=== PATIENT | male | born 1980 | race African-American/Black ===

== ENCOUNTER 2020-08-20 17:12 | Emergency (ER) | payer SELFPAY ==
[~2020-08-20] VITALS: Ht 182.9 cm; Wt 95.3 kg
[2020-08-20] MEDS ORDERED: THIAMINE 100mg/ml INJ (200mg/2ml VIAL) IV ONE (18:15)
[2020-08-20] MEDS ORDERED: SODIUM CHLORIDE 0.9% 1,000 ML IVB ONE (18:15)
[2020-08-20 18:33] LABS: Basophils # (auto) 0 10 ^3/uL (0-0.2); Basophils % (auto) 0.2 % (0.0-2.0); Eosinophils # (auto) 0 10 ^3/uL (0-0.8); Eosinophils % (auto) 0.5 % (0.0-7.0); Hematocrit 47.6 % (41.0-53.0); Hemoglobin 15.9 g/dL (13.5-17.5); Lymphocytes # (auto) 1.6 10 ^3/uL (0.4-5.4); Mean Corpuscular Hemoglobin 31.5 pg (28.0-32.0); Mean Corpuscular Hgb Conc. 33.4 g/dL (32.0-36.0); Mean Corpuscular Volume 94.4 fL (80.0-100.0); Monocytes # (auto) 0.5 10 ^3/uL (0-1.3); Monocytes % (auto) 5.8 % (0.0-12.0); Neutrophils # (auto) 6.2 10 ^3/uL (1.6-8.6); Neutrophils % (auto) 74.5 % (37.0-80.0); Platelet Count (auto) 189 10^3/uL (140-450); Red Blood Cells 5.05 10^6/uL (4.5-5.90); Red Cell Distribution Width 14.6 % (11.8-14.3); White Blood Cell 8.3 10^3/uL (4.4-10.8)
[2020-08-20 18:50] LABS: Albumin 3.9 g/dL (3.4-5.0); Anion Gap 15 (5-15); Blood Urea Nitrogen 10 mg/dL (7-18); Calcium 8.7 mg/dL (8.5-10.1); Carbon Dioxide 20 mmol/L (21-32); Chloride 102 mmol/L (98-107); Glucose 120 mg/dL (74-106); Potassium 3.2 mmol/L (3.5-5.1); Sodium 137 mmol/L (136-145)
[2020-08-20 18:54] LABS: Alanine Aminotransferase 24 U/L (16-61); Alkaline Phosphatase 59 U/L (45-117); Aspartate Aminotransferase 21 U/L (15-37); BUN/Creatinine Ratio 8.1; Bilirubin, Total 0.5 mg/dL (0.2-1.0); GFR African American 85 mL/min; GFR Non-African American 70 mL/min; Total Protein 8.2 g/dL (6.4-8.2)
[2020-08-20 21:39] LABS: Magnesium 2.1 mg/dL (1.6-2.6)
[2020-08-20 22:54] LABS: Urine Bacteria NONE SEEN /hpf (None Seen); Urine Blood Negative /uL (Negative); Urine Specific Gravity 1.006 (1.001-1.035); Urine WBC 2 /hpf (0 - 3)
[2020-08-20 23:11] LABS: Amphetamine Screen, Urine NEGATIVE (NEGATIVE); Barbiturate Scree,Urine NEGATIVE (NEGATIVE); Benzodiazephine Screen, Urine NEGATIVE (NEGATIVE); Cannabinoid Screen, Urine POSITIVE (NEGATIVE); Cocaine Screen, Urine NEGATIVE (NEGATIVE); Opiate Scree,Urine NEGATIVE (NEGATIVE); Phencyclidine Screen, Urine NEGATIVE (NEGATIVE)
[2020-08-21 00:59] VITALS: BP 131/68
== END 2020-08-21 02:27 | disposition home or self-care (01) ==
LOC: ER 17:17
DX: F10.20 Alcohol dependence, uncomplicated (principal); F17.210 Nicotine dependence, cigarettes, uncomplicated; F12.10 Cannabis abuse, uncomplicated; Y90.3 Blood alcohol level of 60-79 mg/100 ml
CPT/HCPCS: 36415; 70450; 71045; 80053; 80307; 80320; 81001; 83735; 84484; 85025; 93005; 96361; 96374; 99285; J3411; J7030

== ENCOUNTER 2022-03-14 08:19 | Emergency (ER) | payer SELFPAY ==
[~2022-03-14] VITALS: Ht 185.4 cm; Wt 105.0 kg
[2022-03-14 16:05] VITALS: BP 147/92
== END 2022-03-14 21:27 | disposition left against medical advice (07) ==
LOC: EDBD 08:19 → ER 08:22
DX: R41.82 Altered mental status, unspecified (principal); R53.1 Weakness; F10.90 Alcohol use, unspecified, uncomplicated; Z53.21 Procedure and treatment not carried out due to patient leaving prior to being seen by health care provider

== ENCOUNTER 2024-02-18 14:14 | Emergency (ER) | payer MEDICAID, OTHER ==
[~2024-02-18] VITALS: Ht 188 cm; Wt 122.0 kg
[2024-02-18 14:30] VITALS: PULSE 83; RESP 20; O2SAT 99
[2024-02-18] MEDS: SODIUM CHLORIDE 0.9% 500 ML IVB ONE (16:23)
[2024-02-18 16:37] LABS: Basophils # (auto) 0 10 ^3/uL (0-0.2); Basophils % (auto) 0.4 % (0.0-2.0); Eosinophils # (auto) 0 10 ^3/uL (0-0.8); Eosinophils % (auto) 0.8 % (0.0-7.0); Hematocrit 47.2 % (41.0-53.0); Hemoglobin 15.9 g/dL (13.5-17.5); Lymphocytes # (auto) 1.9 10 ^3/uL (0.4-5.4); Lymphocytes % (auto) 31.6 % (10.0-50.0); Mean Corpuscular Hemoglobin 31.1 pg (28.0-32.0); Mean Corpuscular Hgb Conc. 33.8 g/dL (32.0-36.0); Mean Corpuscular Volume 92.1 fL (80.0-100.0); Monocytes # (auto) 0.4 10 ^3/uL (0-1.3); Monocytes % (auto) 6.8 % (0.0-12.0); Neutrophils # (auto) 3.6 10 ^3/uL (1.6-8.6); Neutrophils % (auto) 60.4 % (37.0-80.0); Nucleated Red Blood Cells % 0.1 %; Platelet Count (auto) 176 10^3/uL (140-450); Red Blood Cells 5.13 10^6/uL (4.5-5.90); Red Cell Distribution Width 16.3 % (11.8-14.3); White Blood Cell 5.9 10^3/uL (4.4-10.8)
[2024-02-18 16:53] LABS: Alanine Aminotransferase 24 U/L (7-40); Albumin 4.1 g/dL (3.2-4.8); Alkaline Phosphatase 59 U/L (46-116); Anion Gap 7 (5-15); Aspartate Aminotransferase 34 U/L (13-40); Bilirubin, Total 0.4 mg/dL (0.2-1.0); Carbon Dioxide 29 mmol/L (20-31); Chloride 107 mmol/L (98-107); Glucose 92 mg/dL (74-106); Potassium 3.9 mmol/L (3.5-5.1); Sodium 143 mmol/L (136-145); Total Protein 7.1 g/dL (5.7-8.2)
[2024-02-18 17:24] LABS: BUN/Creatinine Ratio 4.5 (10.0-20.0); Blood Alcohol 287.9 mg/dL (<10); Blood Urea Nitrogen < 5 mg/dL (9-23)
--- NOTE | 2024-02-18 18:27 | ECG ---
[facility] Test Date: 2024-02-18 Test Time: 14:44:49 Pat Name: NAWAF MCKEON Department: er Room: Gender: M Appeals Analyst: : 1980 Requested By: BETO LEIJA Order Number: [id number] Reading MD: Jerry Tran Measurements Intervals [place] Rate: 93 P: 75 NH: 177 QRS: 85 QRSD: 83 T: 75 QT: 367 QTc: 457 Interpretive Statements Sinus rhythm Electronically Signed On 02-20-2024 12:46:17 PST by Jerry Tran Please click the below link to view image of tracing.
[2024-02-18 19:30] VITALS: BP 116/69; PULSE 81; RESP 18; TEMP 98; O2SAT 97
[2024-02-18 20:25] VITALS: PULSE 93
--- NOTE | 2024-02-18 20:25 | ED.PDOC ---
History of Present Illness HPI Comments 43 y/o M, with a Hx of CKF, HTN, liver disease, and polysubstance abuse and a FMHx of HTN, presents with spouse for c/o ALOC with nausea and generalized weakness s/p heavy EtOH intake, today. Per spouse, patient has a Hx of heavy EtOH consumption and is reported to have been found in current state at home, w ith empty bottle of vodka next to him, this evening. Patient has no additional reported known substance use/exposure along with any injuries, stressors, strenuous activities, sick contact, or other relevant or pertinent Hx. Patient has no reported abdominal pain, vomiting, tremors, fever, chills, or other associated symptoms or modifiers at this time. Chief Complaint: ETOH Time Seen by MD: 14:55 Reviewed Notes: Nurses Notes, Medications, Allergies Allergies: Coded Allergies: NO KNOWN ALLERGIES (Unverified , 08/20/20) Information Source: Spouse Mode of Arrival: Wheelchair Severity: Moderate Timing: Hours Duration: Since onset Prehospital treatment: None Past Medical History PAST MEDICAL HISTORY: CKF, HTN, Liver (liver disease) Surgical History: Denies all surgeries Family History Family History: Reviewed,noncontributory to illness, No family hx of Cancer, No family hx of DM, No family hx of Heart best, No family hx ofKidney best, No family hx of Liver best, No family hx of Lung best, No family hx of Stroke, Family hx of HTN Social History Smoker: Cigarettes, Less Than 1 Pack/Day Alcohol: Heavy Drugs: Marijuana Lives In: Home Constitutional: denies: chills, diaphoresis, fatigue, fever, malaise, sweats, weakness, others EENTM: denies: blurred vision, double vision, ear bleeding, ear discharge, ear drainage, ear pain, ear ringing, eye pain, eye redness, hearing loss, mouth pain, mouth swelling, nasal discharge, nose bleeding, nose congestion, nose pain, photophobia, tearing, throat pain, throat swelling, voice changes, others Respiratory: denies: cough, hemoptysis, orthopnea, SOB at rest, shortness of breath, SOB with excertion, stridor, wheezing, others Cardiovascular: denies: chest pain, dizzy spells, diaphoresis, Dyspnea on exertion, edema, irregular heart beat, left arm pain, lightheadedness, palpitations, PND, syncope, others Gastrointestinal: reports: nausea; denies: abdomen distended, abdominal pain, blood streaked bowels, constipated, diarrhea, dysphagia, difficulty swallowing, hematemesis, melena, poor appetite, poor fluid intake, rectal bleeding, rectal pain, vomiting, others Genitourinary: denies: burning, dysuria, flank pain, frequency, hematuria, incontinence, penile discharge, penile sore, pain, testicle pain, testicle swelling, urgency, others Neurological: reports: others (ALOC); denies: dizziness, fainting, headache, left sided numbness, left sided weakness, numbness, paresthesia, pre-existing deficit, right sided numbness, right sided weakness, seizure, speech problems, tingling, tremors, weakness Musculoskeletal: denies: back pain, gout, joint pain, joint swelling, muscle pain, muscle stiffness, neck pain, others Integumetry: denies: bruises, change in color, change in hair/nails, dryness, laceration, lesions, lumps, rash, wounds, others Allergic/Immunocompromised: denies: Difficulty Healing, Frequent Infections, Hives, Itching, others Hematologic/Lymphatic: denies: anemia, blood clots, easy bleeding, easy bruising, swollen glands, others Endocrine: denies: excessive hunger, excessive sweating, excessive thirst, excessive urination, flushing, intolerance to cold, intolerance to heat, unexplained weight gain, unexplained weight loss, others Psychiatric: denies: anxiety, bipolar disorder, depression, hopeless, panic disorder, schizophrenia, sleepless, suicidal, others All Other Systems: Reviewed and Negative Physical Exam General Appearance: Mild Distress, Other (Alcohol on the breath) HEENT: Normal ENT Inspection, Pharynx Normal, TMs Normal Neck: Full Range of Motion, Non-Tender, Normal, Normal Inspection Respiratory: Chest Non-Tender, Lungs Clear, No Accessory Muscle Use, No Respiratory Distress, Normal Breath Sounds Cardiovascular: No Edema, No JVD, No Murmur, No Gallop, Normal Peripheral Pulses, Regular Rate/Rhythm Breast Exam: Deferred Gastrointestinal: No Organomegaly, Non Tender, No Pulsatile Mass, Normal Bowel Sounds, Soft Genitalia: Deferred Pelvic: Deferred Rectal: Deferred Extremities: No calf tenderness, Normal capillary refill, Normal inspection, Normal range of motion, Non-tender, No pedal edema Musculoskeletal : Apperance: Normal Neurologic: wheel truer II-XII nml as Tested, Motor Weakness, Normal Affect, No Sensory Deficits, Other (The patient is clearly intoxicated and somewhat altered) Cerebellar Function: Unable to Test Reflexes: Normal Skin: Dry, Normal Color, Warm Lymphatic: No Adenopathy Was a procedure done? Was a procedure done?: No EKG EKG : Pulse Rate (adult): 93 [place]: Normal Cardiac Rhythm: NSR Block: None Hypertrophy: None ST: Normal Differential Dx Considerations may include: EtOH abuse, toxic metabolic encephalopathy X-Ray, Labs, Meds, VS Vital Signs Date Time Temp Pulse Resp B/P (MAP) Pulse Ox O2 Delivery O2 Flow Rate FiO2 02/18/24 20:25 93 02/18/24 19:30 98.0 81 18 116/69 (85) 97 98.0 02/18/24 19:30 81 18 97 Room Air* 0 21 02/18/24 15:09 98.7 88 18 120/79 (93) 98 02/18/24 14:30 83 20 99 Room Air* 0 21 02/18/24 14:28 97.9 83 20 137/90 (106) 99 97.9 Lab Test 02/18/24 16:10 02/18/24 14:40 Range/Units White Blood Count 5.9 4.4-10.8 10^3/uL Red Blood Count 5.13 4.5-5.90 10^6/uL Hemoglobin 15.9 13.5-17.5 g/dL Hematocrit 47.2 41.0-53.0 % Mean Corpuscular Volume 92.1 80.0-100.0 fL Mean Corpuscular Hemoglobin 31.1 28.0-32.0 pg Mean Corpuscular Hemoglobin Concent 33.8 32.0-36.0 g/dL Red Cell Distribution Width 16.3 H 11.8-14.3 % Platelet Count 176 140-450 10^3/uL Mean Platelet Volume 7.7 6.9-10.8 fL Neutrophils (%) (Auto) 60.4 37.0-80.0 % Lymphocytes (%) (Auto) 31.6 10.0-50.0 % Monocytes (%) (Auto) 6.8 0.0-12.0 % Eosinophils (%) (Auto) 0.8 0.0-7.0 % Basophils (%) (Auto) 0.4 0.0-2.0 % Neutrophils # (Auto) 3.6 1.6-8.6 10 ^3/uL Lymphocytes # (Auto) 1.9 0.4-5.4 10 ^3/uL Monocytes # (Auto) 0.4 0-1.3 10 ^3/uL Eosinophils # (Auto) 0 0-0.8 10 ^3/uL Basophils # (Auto) 0 0-0.2 10 ^3/uL Nucleated Red Blood Cells 0.1 % Sodium Level 143 136-145 mmol/L Potassium Level 3.9 3.5-5.1 mmol/L Chloride Level 107 98-107 mmol/L Carbon Dioxide Level 29 20-31 mmol/L Anion Gap 7 5-15 Blood Urea Nitrogen < 5 L 9-23 mg/dL Creatinine 1.12 0.700-1.30 mg/dL Glomerular Filtration Rate Calc 85 >90 mL/min BUN/Creatinine Ratio 4.5 L 10.0-20.0 Serum Glucose 92 74-106 mg/dL Calcium Level 9.0 8.7-10.4 mg/dL Total Bilirubin 0.4 0.2-1.0 mg/dL Aspartate Amino Transferase (AST) 34 13-40 U/L Alanine Aminotransferase (ALT) 24 7-40 U/L Alkaline Phosphatase 59 46-116 U/L Ammonia < 10 L 11-32 umol/L Total Protein 7.1 5.7-8.2 g/dL Albumin 4.1 3.2-4.8 g/dL Plasma/Serum Blood Alcohol 287.9 H <10 mg/dL POC Glucose 107 H 70-106 mg/dl Current Medications Medications (Trade) Dose Ordered Sig/Jovan Route Start Time Stop Time Status Last Admin Sodium Chloride 500 ml @ 500 mls/hr Q1H ONCE IVB 02/18/24 15:30 02/18/24 16:29 DC 02/18/24 16:23 The patient's CBC and chemistry panel are within normal limits The alcohol level is 287.9 An IV Hep-Lock was established and the patient was bolused with normal saline 500 cc bolus At this time, the patient will be discharged and will follow up with the primary care doctor The patient will return to the emergency department's condition worsens. Time of 1ST Reevaluation: 15:25 Reevaluation 1ST: Unchanged Patient Education/Counseling: Diagnosis, Treatment, Prognosis, Need For Follow Up Family Education/Counseling: Diagnosis, Treatment, Prognosis, Need For Follow Up Departure 1 Departure Time of Disposition: 21:30 Impression: Primary Impression: Alcohol intoxication Qualified Codes: F10.920 - Alcohol use, unspecified with intoxication, uncomplicated Disposition: 01 HOME / SELF CARE / HOMELESS Condition: Fair Discharged With: Self Critical Care Note Critical Care Time?: No Stability Stability form required: No Heart Score Heart Score: Heart Score Response (Comments) Value History N/A 0 EKG N/A 0 Age N/A 0 Risk Factors N/A 0 Troponin N/A 0 Total 0 I personally scribed for BETO LEIJA MD ([email or web address]) on 02/18/24 at 20:25. Electronically submitted by Axel Sanchez ([email or web address]). BETO LEIJA MD Feb 18, 2024 20:25
== END 2024-02-18 22:30 | disposition home or self-care (01) ==
LOC: ER 14:14
DX: F10.129 Alcohol abuse with intoxication, unspecified (principal); I12.9 Hypertensive chronic kidney disease with stage 1 through stage 4 chronic kidney disease, or unspecified chronic kidney disease; N18.9 Chronic kidney disease, unspecified; F17.210 Nicotine dependence, cigarettes, uncomplicated; F12.90 Cannabis use, unspecified, uncomplicated
CPT/HCPCS: 36415; 80053; 80320; 82140; 82962; 85025; 93005; 96360; 99284; J7040

== ENCOUNTER 2024-07-18 21:05 | Emergency (ER) | payer MEDICAID ==
[2024-07-18 21:46] VITALS: PULSE 108; RESP 20; TEMP 97.7; O2SAT 93
[2024-07-18] MEDS: HALOPERIDOL LACTATE 5 MG/ML INJ VIAL ONE (21:47)
[2024-07-18] MEDS: HALOPERIDOL LACTATE 5 MG/ML INJ VIAL IM ONE ×3 (21:48→22:08)
[2024-07-18] MEDS: LORazepam 2MG/ML-1ML VIAL IM ONE (22:00)
[2024-07-18] MEDS: diphenhdrAMINE HCL 50 MG/1 ML VL IM ONE (22:01)
[2024-07-18] MEDS: SODIUM CHLORIDE 0.9% 1,000 ML IV ONE (22:25)
[2024-07-18 22:49] LABS: Basophils # (auto) 0.1 10 ^3/uL (0-0.2); Basophils % (auto) 1.1 % (0.0-2.0); Eosinophils # (auto) 0.1 10 ^3/uL (0-0.8); Eosinophils % (auto) 0.9 % (0.0-7.0); Hematocrit 48.1 % (41.0-53.0); Lymphocytes # (auto) 1.8 10 ^3/uL (0.4-5.4); Lymphocytes % (auto) 22.9 % (10.0-50.0); Mean Corpuscular Hgb Conc. 33.2 g/dL (32.0-36.0); Mean Corpuscular Volume 90.5 fL (80.0-100.0); Monocytes # (auto) 0.3 10 ^3/uL (0-1.3); Monocytes % (auto) 4.1 % (0.0-12.0); Neutrophils # (auto) 5.6 10 ^3/uL (1.6-8.6); Nucleated Red Blood Cells % 0.1 %; Platelet Count (auto) 240 10^3/uL (140-450); Red Blood Cells 5.32 10^6/uL (4.5-5.90); Red Cell Distribution Width 14.5 % (11.8-14.3); White Blood Cell 7.9 10^3/uL (4.4-10.8)
[2024-07-18 23:05] LABS: Alanine Aminotransferase 25 U/L (7-40); Albumin 4.4 g/dL (3.2-4.8); Alkaline Phosphatase 60 U/L (46-116); Anion Gap 13 (5-15); Aspartate Aminotransferase 28 U/L (13-40); BUN/Creatinine Ratio 9.2 (10.0-20.0); Blood Urea Nitrogen 11 mg/dL (9-23); Calcium 9.1 mg/dL (8.7-10.4); Carbon Dioxide 25 mmol/L (20-31); Total Protein 7.5 g/dL (5.7-8.2)
[2024-07-18 23:06] LABS: Bilirubin, Total 0.5 mg/dL (0.2-1.0)
[2024-07-18 23:07] LABS: Chloride 107 mmol/L (98-107); Glucose 73 mg/dL (74-106); Sodium 145 mmol/L (136-145)
[2024-07-18 23:16] LABS: Blood Alcohol 322.8 mg/dL (<10)
[2024-07-18] MEDS: KETAMINE 50mg/ML 10ml Vial (500mg/10ml) IV ONE (23:36)
--- NOTE | 2024-07-18 23:47 | DVH ---
CT HEAD WITHOUT CONTRAST INDICATION: Fall, head injury, intoxication COMPARISON: HEAD WITHOUT CONTRAST on DOS: 08/20/20 TECHNIQUE: CT of the head without intravenous contrast. RADIATION DOSE: CTDIvol: 76.32 mGy, DLP: 2214.21 mGy*cm FINDINGS: IMPRESSION: Essentially nondiagnostic study due to extensive artifact.
[2024-07-19] MEDS: KETOROLAC TROMETH 30 MG/ML 1ML VIAL IV ONE (00:36)
--- NOTE | 2024-07-19 00:54 | ED.PDOC ---
History of Present Illness HPI Comments 43 y/o obese M, with Hx of CKD, HTN, liver disease, and polysubstance abuse, is BIBA with spouse for c/o ALOC and laceration to the back of his head, with associated mild bleeding, s/p alcohol intoxication and fall injury. Per EMS and spouse, patient has been on a 3x day alcohol consumption binge and is reported to have fallen backwards onto his concrete driveway, with positive head injury and LOC, this evening. No further injuries or associated symptoms reported. Patient, upon arrival to ED, is A&Ox2, agitated, and resisting treatment and vital signs by ED staff. Chief Complaint: Head Injury Time Seen by MD: 21:30 Reviewed Notes: Nurses Notes, Production Worker Notes, Medications, Allergies Allergies: Coded Allergies: Penicillins (Verified Allergy, Unknown, 07/18/24) Information Source: Relative, Emergency Med Personnel, Spouse Mode of Arrival: EMS Severity: Moderate Timing: Hours Duration: Since onset Prehospital treatment: 12 Lead EKG, Supervisor Paper Coating Review of Systems: Unable to obtain ROS due to patient being intoxicated. Vital Signs Vital Signs Date Time Temp Pulse Resp B/P (MAP) Pulse Ox O2 Delivery O2 Flow Rate FiO2 07/19/24 06:00 96 16 142/74 (96) 97 07/18/24 21:46 Room Air* 0 21 07/18/24 21:46 97.7 97.7 Physical Exam General: Appears intoxicated. No acute distress. Skin: Hematoma to the occipital area stellate laceration, approximately, 4 cm in length. Otherwise, skin is warm, dry and intact without rashes or lesions. HEENT: The head is normocephalic and atraumatic. Conjunctivae are clear without exudates or hemorrhage. Sclera is non-icteric. Neck: Normal range of motion. No JVD. Cardiac: Regular rate Respiratory: No signs of respiratory distress. No Stridor. Extremities: Upper and lower extremities are atraumatic in appearance without deformity. Neurological: The patient is awake, alert and oriented to person, place, and time with normal speech. Speech is clear. There is no facial asymmetry. Psychiatric: Appropriate mood and affect. Good judgement and insight. Past Medical History PAST MEDICAL HISTORY: CKF, HTN, Liver (Liver disease) Surgical History: Denies all surgeries Family History Family History: Reviewed,noncontributory to illness, No family hx of Cancer, No family hx of DM, No family hx of Heart best, No family hx ofKidney best, No family hx of Liver best, No family hx of Lung best, No family hx of Stroke, Family hx of HTN Social History Smoker: Cigarettes, Less Than 1 Pack/Day Alcohol: Heavy Drugs: Marijuana Lives In: Home Was a procedure done? Was a procedure done?: Yes Sedation Sedation?: No Laceration Repair : Location occipital area Length 4cm Anesthetic: Nothing Laceration Repair Prep: Saline, Shur-Clens, by Irrigation, Manual Scrub Laceration Repair Wound Comple: epidermis/dermis repair Laceration Repair: [place] (# 6), Simple Informed consent obtained: Yes Risks, benefits, and alternati: Yes Notes informed consent obtained in addition to risks, benefits, and alternatives explained to spouse, who was present. Patient, currently, sedated due to aggravated behavior secondary to alcohol intoxication. Differential Dx Considerations may include: Alcohol intoxication, substance abuse, substance dependency, electrolyte imbalance, dehydration, toxic metabolic encephalopathy, closed head injury, in tracranial bleed, laceration, fractures, among others X-Ray, Labs, Meds, VS Vital Signs Date Time Temp Pulse Resp B/P (MAP) Pulse Ox O2 Delivery O2 Flow Rate FiO2 07/19/24 06:00 96 16 142/74 (96) 97 07/19/24 04:00 91 07/19/24 04:00 86 16 120/69 (86) 98 07/19/24 02:00 85 16 106/65 (79) 98 07/19/24 01:00 92 16 109/64 (79) 98 07/19/24 00:00 102 07/18/24 23:00 94 20 121/73 (89) 96 07/18/24 21:46 108 20 93 Room Air* 0 21 07/18/24 21:46 97.7 108 20 127/77 (94) 93 97.7 Lab Test 07/19/24 03:43 07/19/24 01:45 07/19/24 00:48 07/18/24 23:45 Range/Units POC Glucose 64 L 66 L 70-106 mg/dl Troponin I High Sensitivity 54 43 </=54 ng/L Test 07/18/24 22:35 Range/Units White Blood Count 7.9 4.4-10.8 10^3/uL Red Blood Count 5.32 4.5-5.90 10^6/uL Hemoglobin 16.0 13.5-17.5 g/dL Hematocrit 48.1 41.0-53.0 % Mean Corpuscular Volume 90.5 80.0-100.0 fL Mean Corpuscular Hemoglobin 30.0 28.0-32.0 pg Mean Corpuscular Hemoglobin Concent 33.2 32.0-36.0 g/dL Red Cell Distribution Width 14.5 H 11.8-14.3 % Platelet Count 240 140-450 10^3/uL Mean Platelet Volume 6.8 L 6.9-10.8 fL Neutrophils (%) (Auto) 71.0 37.0-80.0 % Lymphocytes (%) (Auto) 22.9 10.0-50.0 % Monocytes (%) (Auto) 4.1 0.0-12.0 % Eosinophils (%) (Auto) 0.9 0.0-7.0 % Basophils (%) (Auto) 1.1 0.0-2.0 % Neutrophils # (Auto) 5.6 1.6-8.6 10 ^3/uL Lymphocytes # (Auto) 1.8 0.4-5.4 10 ^3/uL Monocytes # (Auto) 0.3 0-1.3 10 ^3/uL Eosinophils # (Auto) 0.1 0-0.8 10 ^3/uL Basophils # (Auto) 0.1 0-0.2 10 ^3/uL Nucleated Red Blood Cells 0.1 % Sodium Level 145 136-145 mmol/L Potassium Level 4.0 3.5-5.1 mmol/L Chloride Level 107 98-107 mmol/L Carbon Dioxide Level 25 20-31 mmol/L Anion Gap 13 5-15 Blood Urea Nitrogen 11 9-23 mg/dL Creatinine 1.19 0.700-1.30 mg/dL Glomerular Filtration Rate Calc 79 >90 mL/min BUN/Creatinine Ratio 9.2 L 10.0-20.0 Serum Glucose 73 L 74-106 mg/dL Calcium Level 9.1 8.7-10.4 mg/dL Total Bilirubin 0.5 0.2-1.0 mg/dL Aspartate Amino Transferase (AST) 28 13-40 U/L Alanine Aminotransferase (ALT) 25 7-40 U/L Alkaline Phosphatase 60 46-116 U/L Troponin I High Sensitivity 41 </=54 ng/L B-Type Natriuretic Peptide 12.59 0-100 pg/mL Total Protein 7.5 5.7-8.2 g/dL Albumin 4.4 3.2-4.8 g/dL Plasma/Serum Blood Alcohol 322.8 H <10 mg/dL Current Medications Medications (Trade) Dose Ordered Sig/Jovan Route Start Time Stop Time Status Last Admin Ketorolac Tromethamine (Toradol Injection) 30 mg ONCE ONCE IV 07/19/24 00:00 07/19/24 00:01 DC 07/19/24 00:36 Dextrose/Sodium Chloride 1,000 ml @ 100 mls/hr Q10H ONCE IV 07/19/24 01:15 07/19/24 06:52 DC 07/19/24 01:22 Dextrose 50 ml ONCE ONCE IV 07/19/24 04:00 07/19/24 04:01 DC 07/19/24 03:55 [place] [id number] Ph: [phone] DIAGNOSTIC IMAGING Diagnostic Imaging Report : [id number] Signed PATIENT: NAWAF MCKEON ACCT: [id number] UNIT: [id number] : 1980 LOC: ER ROOM / BED: / AGE / SEX: 43 / M ADM STATUS: REG ER SERVICE 38 ORDERING PHYSICIAN: JUSTINA BERGMAN MD PROCEDURE(s): HWOCT - HEAD WITHOUT CONTRAST REASON: Fall, head injury, intoxication ORDER NUMBER(s): [id number], ACCESSION NUMBER(s): [id number] HEAD WITHOUT CONTRAST INDICATION: Fall, head injury, intoxication COMPARISON: HEAD WITHOUT CONTRAST on DOS: 08/20/20 TECHNIQUE: CT of the head without intravenous contrast. RADIATION DOSE: CTDIvol: 76.32 mGy, DLP: 2214.21 mGy*cm FINDINGS: IMPRESSION: Essentially nondiagnostic study due to extensive artifact. ATED BY: NOAM TOMAS MD DICTATED DATE/TIME: 07/18/24 4605 SIGNED BY: NOAM TOMAS MD SIGNED DATE/TIME: 07/18/24 2345 CC: Time of 1ST Reevaluation: 22:00 Reevaluation 1ST: Unchanged Patient Education/Counseling: Need For Follow Up Family Education/Counseling: Need For Follow Up Departure 1 Departure Time of Disposition: 05:17 Impression: Primary Impression: Alcohol intoxication Additional Impressions: Head injury Scalp laceration Disposition: HOME / SELF CARE / HOMELESS Condition: Stable Additional Instructions: ED DISCHARGE INSTRUCTIONS Instructions: Please read all instructions provided in this packet carefully. Although you have been discharged from the Emergency Department, this does not mean that you have a "clean bill of health". It is possible that you are in the process of developing a serious illness. This is why you must return to the ED without fail if any new or worsening symptoms (especially if your symptoms include worsening headache, vomiting, clumsiness, confusion, difficulty seeing, difficulty walking, chest pain, trouble breathing, abdominal pain, fever,) It is also very important that you see a primary care doctor within the next 3-5 days to follow up. If you are unable to get an appointment, return to the ED for re-evaluation. TIGRE SHOULD BE REMOVED FROM THE SCALP IN 7 DAYS. YOU MAY RETURN HERE TO THE EMERGENCY DEPARTMENT, FOLLOW UP WITH THE PRIMARY CARE PROVIDER OR GO TO A URGENT CARE FACILITY. RETURN TO THE EMERGENCY DEPARTMENT WITH ANY SIGNS OF INFECTION OF THE WOUND. Scalp Cut Closed With [place] or Stitches: Care Instructions Your Care Instructions A scalp laceration is a cut on your head. You may be able to see the cut, or it may be covered by your hair. The cut may throb or feel tender, and you may have a headache. The doctor used tigre or stitches to close the cut. This helps the cut heal and reduces scarring. Your doctor will tell you when to have your stitches or tigre removed. This is usually in 7 to 14 days. How long you'll be told to wait depends on where the cut is located, how big and how deep the cut is, and what your general health is like. Your scalp may itch as it heals. This is more likely if the doctor trimmed or shaved your hair in order to place the tigre or stitches. The doctor has checked you carefully, but problems can develop later. If you notice any problems or new symptoms, get medical treatment right away. Follow-up care is a joyce part of your treatment and safety. Be sure to make and go to all appointments, and call your doctor if you are having problems. It's also a good idea to know your test results and keep a list of the medicines you take. How can you care for yourself at home? Keep the cut dry for the first 24 to 48 hours. After this, you can shower if your doctor okays it. Pat the cut dry. Don't soak the cut, such as in a bathtub. Your doctor will tell you when it's safe to get the cut wet. If your doctor told you how to care for your cut, follow your doctor's instructions. If you did not get instructions, follow this general advice: After the first 24 to 48 hours, wash around the cut with clean water 2 times a day. Don't use hydrogen peroxide or alcohol, which can slow healing. You may cover the cut with a thin layer of petroleum jelly, such as Vaseline. Apply more petroleum jelly as needed. Avoid any activity that could cause your cut to reopen. Do not remove the tigre or stitches on your own. Your doctor will tell you when to come back to have them removed. Be safe with medicines. Read and follow all instructions on the label. If the doctor gave you a prescription medicine for pain, take it as prescribed. If you are not taking a prescription pain medicine, ask your doctor if you can take an [id number] medicine. When should you call for help? Call 911 anytime you think you may need emergency care. For example, call if: Blood is pumping from the cut or does not stop or slow down with pressure. Call your doctor now or seek immediate medical care if: You have new pain or your pain gets worse. You have tingling, weakness, or numbness near the cut. The cut starts to bleed a lot. Oozing small amounts of blood is normal. You have symptoms of infection, such as: Increased pain, swelling, warmth, or redness around the cut. Red streaks leading from the cut. Pus draining from the cut. A fever. Watch closely for changes in your health, and be sure to contact your doctor if: The cut reopens. You do not get better as expected. Credits for Scalp Cut Closed With Tigre or Stitches: Care Instructions Current as of: February 11, 2024 Author: [employer] Staff Clinical Review Board All [employer] education is reviewed by a team that includes physicians, nurses, advanced practitioners, registered dieticians, and other healthcare professionals. Head Injury: Care Instructions Overview Most injuries to the head are minor. Bumps, cuts, and scrapes on the head and face usually heal well and can be treated the same as injuries to other parts of the body. Although it's rare, once in a while a more serious problem shows up after you are home. So it's good to be on the lookout for symptoms for a day or two. Follow-up care is a joyce part of your treatment and safety. Be sure to make and go to all appointments, and call your doctor if you are having problems. It's also a good idea to know your test results and keep a list of the medicines you take. How can you care for yourself at home? Follow your doctor's instructions. The doctor will tell you if you need someone to watch you closely for the next 24 hours or longer. Take it easy for the next few days or more if you are not feeling well. Ask your doctor when it's okay for you to go back to activities like driving a car, riding a bike, or operating machinery. When should you call for help? Call 911 anytime you think you may need emergency care. For example, call if: You have a seizure. You passed out (lost consciousness). You are confused or can't stay awake. You have a headache that gets worse and does not go away. You have new vision changes or one pupil (the black part in the middle of the eye) that is larger than the other. You have slurred speech, balance problems, or decreased coordination. Call your doctor now or seek immediate medical care if: You have new or worse vomiting. You feel less alert. You have new weakness or numbness in any part of your body. You have new symptoms, such as unclear thinking or changes in mood. Watch closely for changes in your health, and be sure to contact your doctor if: You do not get better as expected. Credits for Head Injury: Care Instructions Current as of: February 26, 2023 Author: [employer] Staff Comments 43-YEAR-OLD MALE WITH ALCOHOL INTOXICATION AND HEAD INJURY. OBSERVED IN THE EMERGENCY DEPARTMENT. HE IS MORE AWAKE. HE WOULD LIKE TO GO HOME WITH HIS WHO WILL PICK HIM UP AND MONITOR HIM AT HOME. Critical Care Note Critical Care Time?: Yes (35 min-critical care time only) Stability Stability form required: No Heart Score Heart Score: Heart Score Response (Comments) Value History N/A 0 EKG N/A 0 Age N/A 0 Risk Factors N/A 0 Troponin N/A 0 Total 0 I personally scribed for JUSTINA BERGMAN MD ([email or web address]) on 07/19/24 at 00:54. Electronically submitted by Axel Sanchez ([email or web address]). I personally scribed for JUSTINA BERGMAN MD ([email or web address]) on 07/19/24 at 01:39. Electronically submitted by Axel Sanchez ([email or web address]). JUSTINA BERGMAN MD July 19, 2024 00:54
[2024-07-19] MEDS: THIAMINE 100mg/ml INJ (200mg/2ml VIAL) ONE (01:19)
[2024-07-19] MEDS: FOLIC ACID 1 MG, MULTIPLE VITAMIN 10 ML, MAGNESIUM SULF SDV 50% 8 MEQ, THIAMINE INJ 100... INJ ONE (01:19)
[2024-07-19] MEDS: D5W/SOD CHL 0.45% 1,000 ML IV ONE (01:22)
--- NOTE | 2024-07-19 03:38 | DVH ---
EXAM: CT HEAD WITHOUT CONTRAST INDICATION: Repeat Examination TECHNIQUE: CT of the head without intravenous contrast. Radiation Dose : 1. Head: CT Dose: CTDI volume is 69.71 mGy. Dose-length product is 1094.48 mGy*cm The dose indicators for CT are the volume Computed Tomography (CT) Dose Index (CTDIvol) and the Dose Length Product (DLP), and are measured in units of mGy and mGy-cm, respectively. These indicators are not patient dose, but values generated from the CT scanner acquisition factors. The report includes radiation exposure data for exposures received during this examination. COMPARISON: CT HEAD WITHOUT CONTRAST on DOS: 07/18/24, HEAD WITHOUT CONTRAST on DOS: 08/20/20 FINDINGS: There is no evidence of acute intracranial hemorrhage, extra-axial collection, mass effect, midline s hift, herniation or hydrocephalus. The ventricles, sulci and cisterns are age appropriate. The marroquin-white differentiation is intact. The visualized paranasal sinuses and mastoid air cells are clear. No evidence of calvarial fracture. Moderate scalp soft tissue swelling within the posterior midline n ear the vertex. Skin zabrina noted. IMPRESSION: 1. No acute intracranial abnormality. 2. Moderate posterior midline scalp soft tissue swelling near the vertex with skin zabrina. Radiation optimization: All CT scans at this facility use at least one of these dose optimization andreas hniques: automated exposure control mA and/or kV adjustment per patient size (includes targeted exam s where dose is matched to clinical indication) or iterative reconstruction.
[2024-07-19] MEDS: DEXTROSE (50%) 50ML SYRG IV ONE (03:55)
[2024-07-19 06:00] VITALS: BP 142/74; PULSE 96; RESP 16; O2SAT 97
[2024-07-19] MEDS ORDERED: FOLIC ACID 1 MG, MULTIPLE VITAMIN 10 ML, MAGNESIUM SULF SDV 50% 8 MEQ, THIAMINE INJ 100... INJ SCH (18:00)
== END 2024-07-19 06:50 | disposition home or self-care (01) ==
LOC: EDBD 21:05 → ER 21:09
DX: S01.01XA Laceration without foreign body of scalp, initial encounter (principal); F10.129 Alcohol abuse with intoxication, unspecified; I12.9 Hypertensive chronic kidney disease with stage 1 through stage 4 chronic kidney disease, or unspecified chronic kidney disease; N18.9 Chronic kidney disease, unspecified; F17.210 Nicotine dependence, cigarettes, uncomplicated; F12.90 Cannabis use, unspecified, uncomplicated; E66.9 Obesity, unspecified; Z88.0 Allergy status to penicillin; W19.XXXA Unspecified fall, initial encounter; Y93.89 Activity, other specified; Y92.89 Other specified places as the place of occurrence of the external cause; Y99.8 Other external cause status; Y90.8 Blood alcohol level of 240 mg/100 ml or more
CPT/HCPCS: 12002; 36415; 70450; 80053; 80320; 82947; 83880; 84484; 85025; 96361; 96372; 96374; 96375; 99285; J1200; J1630; J1885; J2060; J3411; J3475; J7030; J7042; J7070; 82962

== ENCOUNTER 2024-07-20 21:30 | Inpatient (IN) | payer MEDICAID ==
[~2024-07-20] VITALS: Ht 182.9 cm; Wt 113.0 kg
[2024-07-20] MEDS: SODIUM CHLORIDE 0.9% 1,000 ML IVB ONE (21:45)
--- NOTE | 2024-07-20 21:57 | ED.PDOC ---
History of Present Illness Chief Complaint: ETOH Comments 43-year-old male with a history of alcohol abuse brought in by EMS after his became concerned because he was drinking alcohol and became confused. Apparently patient had hit his head a few days ago and received zabrina in the back of his scalp Time Seen by MD: 21:43 Allergies: Coded Allergies: Penicillins (Verified Allergy, Unknown, 07/18/24) Information Source: Patient, Emergency Med Personnel Mode of Arrival: EMS Severity: Moderate, Severe Timing: Hours Duration: Since onset Past Medical History PAST MEDICAL HISTORY: CKF, HTN, Liver Surgical History: Denies all surgeries Family History Family History: Reviewed,noncontributory to illness, No family hx of Cancer, No family hx of DM, No family hx of Heart best, No family hx ofKidney best, No family hx of Liver best, No family hx of Lung best, No family hx of Stroke, Family hx of HTN Social History Smoker: Cigarettes, Less Than 1 Pack/Day Alcohol: Heavy Drugs: Marijuana Lives In: Home Constitutional: reports: fatigue Gastrointestinal: reports: nausea Psychiatric: reports: others (Etoh abuse) Unable to Obtain due to: Altered Mental Status Physical Exam General Appearance: Mild Distress HEENT: Normal ENT Inspection, Pharynx Normal, TMs Normal Neck: Full Range of Motion, Non-Tender, Normal, Normal Inspection Respiratory: Chest Non-Tender, Lungs Clear, No Accessory Muscle Use, No Respiratory Distress, Normal Breath Sounds Cardiovascular: No Edema, No JVD, No Murmur, No Gallop, Normal Peripheral Pulses, Regular Rate/Rhythm Breast Exam: Deferred Gastrointestinal: No Organomegaly, Non Tender, No Pulsatile Mass, Normal Bowel Sounds, Soft Genitalia: Deferred Pelvic: Deferred Rectal: Deferred Extremities: No calf tenderness, Normal capillary refill, Normal inspection, Normal range of motion, Non-tender, No pedal edema Musculoskeletal : Apperance: Normal Neurologic: Depressed Affect, Other (inebriated affect) Cerebellar Function: Normal Reflexes: Normal Skin: Wounds (zabrina in posterior scalp), Other Lymphatic: No Adenopathy Was a procedure done? Was a procedure done?: No Differential Dx Considerations may include: Differential diagnosis includes but is not limited to: encephalitis, encep halopathy, toxic overdose, traumatic injury, infectious process, hypovolemia and others X-Ray, Labs, Meds, VS Vital Signs Date Time Temp Pulse Resp B/P (MAP) Pulse Ox O2 Delivery O2 Flow Rate FiO2 07/20/24 21:44 98.1 104 16 138/65 (89) 95 98.1 Lab Test 07/20/24 22:08 Range/Units White Blood Count 7.9 4.4-10.8 10^3/uL Red Blood Count 5.45 4.5-5.90 10^6/uL Hemoglobin 16.6 13.5-17.5 g/dL Hematocrit 48.5 41.0-53.0 % Mean Corpuscular Volume 89.0 80.0-100.0 fL Mean Corpuscular Hemoglobin 30.4 28.0-32.0 pg Mean Corpuscular Hemoglobin Concent 34.1 32.0-36.0 g/dL Red Cell Distribution Width 15.1 H 11.8-14.3 % Platelet Count 256 140-450 10^3/uL Mean Platelet Volume 7.6 6.9-10.8 fL Neutrophils (%) (Auto) 68.9 37.0-80.0 % Lymphocytes (%) (Auto) 24.5 10.0-50.0 % Monocytes (%) (Auto) 5.4 0.0-12.0 % Eosinophils (%) (Auto) 0.5 0.0-7.0 % Basophils (%) (Auto) 0.7 0.0-2.0 % Neutrophils # (Auto) 5.5 1.6-8.6 10 ^3/uL Lymphocytes # (Auto) 1.9 0.4-5.4 10 ^3/uL Monocytes # (Auto) 0.4 0-1.3 10 ^3/uL Eosinophils # (Auto) 0 0-0.8 10 ^3/uL Basophils # (Auto) 0.1 0-0.2 10 ^3/uL Nucleated Red Blood Cells 0.1 % Prothrombin Time 10.1 9.3-11.8 sec Prothrombin Time INR 0.95 0.9-1.15 Activated Partial Thromboplast Time 27.6 24.5-34.5 SEC Sodium Level 140 # 136-145 mmol/L Potassium Level 3.9 3.5-5.1 mmol/L Chloride Level 103 98-107 mmol/L Carbon Dioxide Level 23 20-31 mmol/L Anion Gap 14 5-15 Blood Urea Nitrogen 7 L 9-23 mg/dL Creatinine 0.93 0.700-1.30 mg/dL Glomerular Filtration Rate Calc 106 >90 mL/min BUN/Creatinine Ratio 7.5 L 10.0-20.0 Serum Glucose 87 74-106 mg/dL Calcium Level 9.9 8.7-10.4 mg/dL Magnesium Level 2.1 1.6-2.6 mg/dL Total Bilirubin 0.7 0.2-1.0 mg/dL Aspartate Amino Transferase (AST) 44 H 13-40 U/L Alanine Aminotransferase (ALT) 38 7-40 U/L Alkaline Phosphatase 68 46-116 U/L Total Protein 8.1 5.7-8.2 g/dL Albumin 4.7 3.2-4.8 g/dL Salicylates Level < 3.0 -30 mg/dL Acetaminophen Level < 2.0 L 10.0-20.0 UG/ML Plasma/Serum Blood Alcohol 306.6 H <10 mg/dL Current Medications Medications (Trade) Dose Ordered Sig/Jovan Route Start Time Stop Time Status Last Admin Lorazepam (Ativan Inj) 1 mg ONCE ONCE IV 07/20/24 21:45 07/20/24 21:48 DC 07/20/24 23:18 Time of 1ST Reevaluation: 21:56 Reevaluation 1ST: Unchanged Time of 2ND Reevaluation: 23:39 Reevaluation 2ND: Unchanged Patient Education/Counseling: Diagnosis, Treatment Family Education/Counseling: No Family Present Departure 1 Departure Time of Disposition: 23:36 Impression: Primary Impression: Alcohol abuse Additional Impressions: Head injury Scalp laceration Alcohol intoxication Disposition: 09 ADMITTED INPATIENT Condition: Guarded Comments Altered Mental Status with Alcohol Intoxication Chief Complaint: Altered mental status History of Present Illness: 43-year-old male with history of alcohol abuse presents via EMS after called due to altered mental status and appearing intoxicated. Patient admits to alcohol consumption today but is unable to quantify amount. Of note, patient has recent hospital admission for head injury with current healing laceration with zabrina in posterior scalp. Patient is currently somnolent but able to answer questions appropriately, though demonstrating unsteady gait. Review of Systems: Constitutional: Somnolent Neurological: Altered mental status, unsteady gait All other systems reviewed and negative or unable to assess due to patient condition Physical Exam: General: Somnolent but arousable HEENT: Healing laceration with zabrina in posterior scalp Neurological: Altered mental status, answers questions appropriately Gait: Unsteady Lab Results: Blood alcohol level: 308 mg/dL Imaging and Other Relevant Results: CT Head: No acute intracranial pathology Medical Decision Making: Summary Statement: 43-year-old male with history of alcohol abuse presents with altered mental status, elevated blood alcohol level, and recent head injury. Problem List: 1. Acute alcohol intoxication 2. Risk for alcohol withdrawal 3. Recent head injury with healing laceration 4. Altered mental status Differential Diagnosis: 1. Acute alcohol intoxication 2. Early alcohol wi thdrawal 3. Traumatic brain injury 4. Metabolic encephalopathy 5. Intracranial hemorrhage ED Course: Patient evaluated for altered mental status. CT head obtained showing no acute pathology. Labs revealed significantly elevated blood alcohol level of 308. Given history of alcohol abuse and current presentation, patient requires admission for monitoring of potential alcohol withdrawal. Assessment and Plan: 1. Acute Alcohol Intoxication with Altered Mental Status - Blood alcohol level 308 mg/dL - Monitor mental status and vital signs - Supportive care 2. Risk for Alcohol Withdrawal - Admit to hospital for monitoring and management - Initiate CIWA protocol as needed 3. Recent Head Injury - CT head negative for acute pathology - Continue wound care for healing scalp laceration Disposition: Admit to Medicine service for management of alcohol intoxication and monitoring for withdrawal Billing Information: ICD-10: F10.229 - Alcohol dependence with intoxication, unspecified ICD-10: R41.82 - Altered mental status, unspecified ICD-10: S09.90XA - Unspecified injury of head, initial encounter Critical Care Note Critical Care Time?: No Stability Stability form required: No Heart Score Heart Score: Heart Score Response (Comments) Value History N/A 0 EKG N/A 0 Age N/A 0 Risk Factors N/A 0 Troponin N/A 0 Total 0 DEYSI MORALES MD July 20, 2024 21:57
[2024-07-20 22:30] VITALS: PULSE 110; RESP 18; TEMP 98.7; O2SAT 93
--- NOTE | 2024-07-20 22:42 | DVH ---
EXAM: CT HEAD WITHOUT CONTRAST INDICATION: ALOC etoh , head injury TECHNIQUE: CT of the head without intravenous contrast. Radiation Dose Information: CT Dose: CTDI volume is 68.01 mGy. Dose-length product is 1203.92 mGy*cm The dose indicators for CT are the volume Computed Tomography (CT) Dose Index (CTDIvol) and the Dose Length Product (DLP), and are measured in units of mGy and mGy-cm, respectively. These indicators are not patient dose, but values generated from the CT scanner acquisition factors. The report includes radiation exposure data for exposures received during this examination. COMPARISON: CT HEAD WITHOUT CONTRAST on DOS: 07/19/24, CT HEAD WITHOUT CONTRAST on DOS: 07/18/24, HEAD WITHOUT CONTRAST on DOS: 08/20/20 FINDINGS: There is no evidence of acute intracranial hemorrhage, extra-axial collection, mass effect, midline s hift, herniation or hydrocephalus. The ventricles, sulci and cisterns are age appropriate. The marroquin-white differentiation is intact. Patchy periventricular and subcortical white matter hypoattenuation is nonspecific but may be related to small vessel ischemic disease. The visualized paranasal sinuses and mastoid air cells are clear. Closure zabrina are noted in the posterior scalp. IMPRESSION: 1. No acute intracranial abnormality. 2. Skin closure staple in the scalp in the occipital region.
[2024-07-20 22:52] LABS: Basophils # (auto) 0.1 10 ^3/uL (0-0.2); Basophils % (auto) 0.7 % (0.0-2.0); Eosinophils # (auto) 0 10 ^3/uL (0-0.8); Eosinophils % (auto) 0.5 % (0.0-7.0); Hematocrit 48.5 % (41.0-53.0); Hemoglobin 16.6 g/dL (13.5-17.5); Lymphocytes # (auto) 1.9 10 ^3/uL (0.4-5.4); Lymphocytes % (auto) 24.5 % (10.0-50.0); Mean Corpuscular Hemoglobin 30.4 pg (28.0-32.0); Mean Corpuscular Hgb Conc. 34.1 g/dL (32.0-36.0); Monocytes # (auto) 0.4 10 ^3/uL (0-1.3); Monocytes % (auto) 5.4 % (0.0-12.0); Neutrophils # (auto) 5.5 10 ^3/uL (1.6-8.6); Neutrophils % (auto) 68.9 % (37.0-80.0); Nucleated Red Blood Cells % 0.1 %; Platelet Count (auto) 256 10^3/uL (140-450); Red Blood Cells 5.45 10^6/uL (4.5-5.90); Red Cell Distribution Width 15.1 % (11.8-14.3); White Blood Cell 7.9 10^3/uL (4.4-10.8)
[2024-07-20 23:00] LABS: INR 0.95 (0.9-1.15); Partial Thromboplastin Time 27.6 SEC (24.5-34.5); Prothrombin Time 10.1 sec (9.3-11.8)
[2024-07-20 23:04] LABS: Alanine Aminotransferase 38 U/L (7-40); Albumin 4.7 g/dL (3.2-4.8); Alkaline Phosphatase 68 U/L (46-116); Anion Gap 14 (5-15); BUN/Creatinine Ratio 7.5 (10.0-20.0); Bilirubin, Total 0.7 mg/dL (0.2-1.0); Calcium 9.9 mg/dL (8.7-10.4); Carbon Dioxide 23 mmol/L (20-31); Chloride 103 mmol/L (98-107); Glucose 87 mg/dL (74-106); Magnesium 2.1 mg/dL (1.6-2.6); Potassium 3.9 mmol/L (3.5-5.1); Sodium 140 mmol/L (136-145); Total Protein 8.1 g/dL (5.7-8.2)
[2024-07-20 23:08] LABS: Acetaminophen < 2.0 UG/ML (10.0-20.0); Salicylate < 3.0 mg/dL (-30)
[2024-07-20 23:09] LABS: Aspartate Aminotransferase 44 U/L (13-40); Blood Urea Nitrogen 7 mg/dL (9-23)
[2024-07-20 23:14] LABS: Blood Alcohol 306.6 mg/dL (<10)
[2024-07-20] MEDS: LORazepam 2MG/ML-1ML VIAL IV ONE (23:18)
[2024-07-21] MEDS ORDERED: ACETAMINOPHEN 325 MG TAB PO PRN
[2024-07-21] MEDS ORDERED: chlordiazePOXIDE HCL 25 MG CAP PO PRN
[2024-07-21] MEDS ORDERED: ONDANSETRON HCL 4 MG/2 ML VIAL IV PRN
[2024-07-21 00:15] VITALS: BP 142/72; PULSE 111; O2SAT 93
[2024-07-21] MEDS: SODIUM CHLORIDE 0.9% 1,000 ML IV ONE (00:17)
--- NOTE | 2024-07-21 03:12 | DVHHP2 ---
History of Present Illness Reason for Visit: Altered mental status History of Present Illness 43-year-old male presents for evaluation of altered mental status. The patient with a history of alcohol abuse presents after his noticed and become more confused. Patient is currently lethargic oriented x3. No focal deficits. No cardiac or respiratory symptoms. Past Medical History Hypotension, chronic kidney disease, liver disease Past Surgical History Denies Family History Noncontributory Smoke: <1 pack per day ALCOHOL: heavy Drugs: Marijuana Lives: with Family Review of Systems Review of Systems Review of systems are currently negative otherwise addressed in HPI. Allergies: Coded Allergies: Penicillins (Verified Allergy, Unknown, 07/18/24) Medications Current Medications Medications Dose Ordered Sig/Jovan Route Start Time Stop Time Status Last Admin Dose Admin Chlordiazepoxide HCl 25 mg Q6HPRN PRN PO 07/21/24 00:00 Thiamine HCl 100 mg DAILY PO 07/21/24 10:00 Folic Acid 1 mg DAILY PO 07/21/24 10:00 Ondansetron HCl 4 mg Q4HP PRN IV 07/21/24 00:00 Acetaminophen 650 mg Q6HP PRN PO 07/21/24 00:00 Exam Vital Signs Vital Signs Date Time Temp Pulse Resp B/P (MAP) Pulse Ox O2 Delivery O2 Flow Rate FiO2 07/21/24 00:15 111 142/72 (95) 93 07/20/24 22:30 Room Air* 0 21 07/20/24 22:30 98.7 18 98.7 Exam Gen: 43-year-old male in no apparent distress. Skin: Warm, dry, normal color and texture, no rash. HEENT: Normocephalic atraumatic, mucous membranes moist and pink. Neck: Cervical and supraclavicular nodes normal without enlargement, trachea is midline, thyroid gland is normal without masses. Pulmonary: Clear to auscultation and percussion bilaterally. Cardiac: Regular rate and rhythm. No murmur Abdomen: Soft, nontender, nondistended, bowel sounds present all 4 quadrants, no guarding, no rigidity, no organomegaly. Extremities: No cyanosis, clubbing, no edema Neuro: Cranial nerves II through XII grossly intact, normal affect and speech, no focal motor deficits. Labs/Xrays ORDERING PHYSICIAN: DEYSI MORALES MD PROCEDURE(s): HWOCT - HEAD WITHOUT CONTRAST REASON: ALOC etoh , head injury ORDER NUMBER(s): [id number], ACCESSION NUMBER(s): [id number] EXAM: CT HEAD WITHOUT CONTRAST INDICATION: ALOC etoh , head injury TECHNIQUE: CT of the head without intravenous contrast. Radiation Dose Information: CT Dose: CTDI volume is 68.01 mGy. Dose-length product is 1203.92 mGy*cm The dose indicators for CT are the volume Computed Tomography (CT) Dose Index (CTDIvol) and the Dose Length Product (DLP), and are measured in units of mGy and mGy-cm, respectively. These indicators are not patient dose, but values generated from the CT scanner acquisition factors. The report includes radiation exposure data for exposures received during this examination. COMPARISON: CT HEAD WITHOUT CONTRAST on DOS: 07/19/24, CT HEAD WITHOUT CONTRAST on DOS: 07/18/24, HEAD WITHOUT CONTRAST on DOS: 08/20/20 FINDINGS: There is no evidence of acute intracranial hemorrhage, extra-axial collection, mass effect, midline shift, herniation or hydrocephalus. The ventricles, sulci and cisterns are age appropriate. The marroquin-white differentiation is intact. Patchy periventricular and subcortical white matter hypoattenuation is nonspecific but may be related to small vessel ischemic disease. The visualized paranasal sinuses and mastoid air cells are clear. Closure zabrina are noted in the posterior scalp. IMPRESSION: 1. No acute intracranial abnormality. 2. Skin closure staple in the scalp in the occipital region. Labs Test 07/20/24 22:08 Range/Units White Blood Count 7.9 4.4-10.8 10^3/uL Red Blood Count 5.45 4.5-5.90 10^6/uL Hemoglobin 16.6 13.5-17.5 g/dL Hematocrit 48.5 41.0-53.0 % Mean Corpuscular Volume 89.0 80.0-100.0 fL Mean Corpuscular Hemoglobin 30.4 28.0-32.0 pg Mean Corpuscular Hemoglobin Concent 34.1 32.0-36.0 g/dL Red Cell Distribution Width 15.1 H 11.8-14.3 % Platelet Count 256 140-450 10^3/uL Mean Platelet Volume 7.6 6.9-10.8 fL Neutrophils (%) (Auto) 68.9 37.0-80.0 % Lymphocytes (%) (Auto) 24.5 10.0-50.0 % Monocytes (%) (Auto) 5.4 0.0-12.0 % Eosinophils (%) (Auto) 0.5 0.0-7.0 % Basophils (%) (Auto) 0.7 0.0-2.0 % Neutrophils # (Auto) 5.5 1.6-8.6 10 ^3/uL Lymphocytes # (Auto) 1.9 0.4-5.4 10 ^3/uL Monocytes # (Auto) 0.4 0-1.3 10 ^3/uL Eosinophils # (Auto) 0 0-0.8 10 ^3/uL Basophils # (Auto) 0.1 0-0.2 10 ^3/uL Nucleated Red Blood Cells 0.1 % Prothrombin Time 10.1 9.3-11.8 sec Prothrombin Time INR 0.95 0.9-1.15 Activated Partial Thromboplast Time 27.6 24.5-34.5 SEC Sodium Level 140 # 136-145 mmol/L Potassium Level 3.9 3.5-5.1 mmol/L Chloride Level 103 98-107 mmol/L Carbon Dioxide Level 23 20-31 mmol/L Anion Gap 14 5-15 Blood Urea Nitrogen 7 L 9-23 mg/dL Creatinine 0.93 0.700-1.30 mg/dL Glomerular Filtration Rate Calc 106 >90 mL/min BUN/Creatinine Ratio 7.5 L 10.0-20.0 Serum Glucose 87 74-106 mg/dL Calcium Level 9.9 8.7-10.4 mg/dL Magnesium Level 2.1 1.6-2.6 mg/dL Total Bilirubin 0.7 0.2-1.0 mg/dL Aspartate Amino Transferase (AST) 44 H 13-40 U/L Alanine Aminotransferase (ALT) 38 7-40 U/L Alkaline Phosphatase 68 46-116 U/L Total Protein 8.1 5.7-8.2 g/dL Albumin 4.7 3.2-4.8 g/dL Salicylates Level < 3.0 -30 mg/dL Acetaminophen Level < 2.0 L 10.0-20.0 UG/ML Plasma/Serum Blood Alcohol 306.6 H <10 mg/dL Assessment/Plan Assessment/Plan Assessment Toxic encephalopathy Alcohol abuse Scalp laceration Plan Admit the patient to [facility] to the hospitalist Librium/folic acid/thiamine Maintenance IV fluids Continue treatment per orders. Plan discussed with: Patient My Orders Orders - TELMA PAINTER Procedure Category Date Status Time Admit ADMIT 07/20/24 Transmitted 23:56 Chlordiazepoxide Hcl PHA 07/21/24 In Process Capsule (Librium Ca 00:00 Thiamine Tab PHA 07/21/24 In Process 10:00 Folic Acid Tablet PHA 07/21/24 In Process 10:00 Sodium Chloride 0.9% PHA 07/21/24 In Process 00:00 Basic Metabolic Panel LAB 07/21/24 Logged 04:00 Ondansetron Hcl PHA 07/21/24 In Process (Zofran) 00:00 Condition: Stable LAILA 07/20/24 In Process 23:59 Acetaminophen Tablet PHA 07/21/24 In Process (Tylenol Tablet) 00:00 Bedrest With Bathroom LAILA 07/20/24 In Process Privileg 23:59 Regular Diet DIET 07/21/24 Transmitted Breakfast Date of Service: July 20, 2024 Billing Provider: TELMA PAINTER Common Visit Codes: [id number] INP/OBS CARE (MOD) TELMA PAINTER July 21, 2024 03:12
[2024-07-21] MEDS ORDERED: THIAMINE HCL 100 MG TAB PO SCH (10:00)
[2024-07-21] MEDS ORDERED: FOLIC ACID 1 MG TAB PO SCH (10:00)
== END 2024-07-21 03:22 | disposition left against medical advice (07) | DRG 52 ==
LOC: ER 21:30 → EDBD 21:30 → OVERFLOW 23:56
PROVIDERS: ADMIT Nurse Practitioner; ATTEND Nurse Practitioner
DX: G92.9 Unspecified toxic encephalopathy (principal); F10.129 Alcohol abuse with intoxication, unspecified; S01.01XA Laceration without foreign body of scalp, initial encounter; Z53.29 Procedure and treatment not carried out because of patient's decision for other reasons; N18.9 Chronic kidney disease, unspecified; I12.9 Hypertensive chronic kidney disease with stage 1 through stage 4 chronic kidney disease, or unspecified chronic kidney disease; F17.210 Nicotine dependence, cigarettes, uncomplicated; Z79.899 Other long term (current) drug therapy; Z88.0 Allergy status to penicillin; X58.XXXA Exposure to other specified factors, initial encounter; Y93.89 Activity, other specified; Y92.89 Other specified places as the place of occurrence of the external cause; Y99.8 Other external cause status; Y90.8 Blood alcohol level of 240 mg/100 ml or more
CPT/HCPCS: 36415; 70450; 80053; 80320; 80329; 83735; 85025; 85610; 85730; 96374; G0378

== ENCOUNTER 2024-09-09 19:09 | Emergency (ER) | payer MEDICAID ==
[2024-09-09 19:15] VITALS: PULSE 92
--- NOTE | 2024-09-09 19:29 | ED.PDOC ---
Altered Mental Status HPI Comments This is a 44 year old male MAIA presenting to the ED with chief complaint of chest pain and ETOH abuse. Patient reports that he has been experiencing midsternal chest pain today since drinking ETOH heavily all day today. Patient denies any SOB, dizziness, N/V/D, abdominal pain, or weakness. Time Seen by MD: 19:27 Reviewed Notes: Nurses Notes, Professor Of Literature Notes, Medications, Allergies Allergies: Coded Allergies: Penicillins (Verified Allergy, Unknown, 07/18/24) Information Source: Patient, Emergency Med Personnel Mode of Arrival: EMS Severity: Moderate Timing: Hours Duration: Since onset Prehospital treatment: None Associated Signs and Symptoms: Chest Pain Past Medical History PAST MEDICAL HISTORY: CKF, HTN, Liver Surgical History: Denies all surgeries Family History Family History: Reviewed,noncontributory to illness, No family hx of Cancer, No family hx of DM, No family hx of Heart best, No family hx ofKidney best, No family hx of Liver best, No family hx of Lung best, No family hx of Stroke, Family hx of HTN Social History Smoker: Cigarettes, Less Than 1 Pack/Day Alcohol: Heavy Drugs: Marijuana Lives In: Home Constitutional: denies: chills, diaphoresis, fatigue, fever, malaise, sweats, weakness, others EENTM: denies: blurred vision, double vision, ear bleeding, ear discharge, ear drainage, ear pain, ear ringing, eye pain, eye redness, hearing loss, mouth pain, mouth swelling, nasal discharge, nose bleeding, nose congestion, nose pain, photophobia, tearing, throat pain, throat swelling, voice changes, others Respiratory: denies: cough, hemoptysis, orthopnea, SOB at rest, shortness of breath, SOB with excertion, stridor, wheezing, others Cardiovascular: reports: chest pain; denies: dizzy spells, diaphoresis, Dyspnea on exertion, edema, irregular heart beat, left arm pain, lightheadedness, palpitations, PND, syncope, others Gastrointestinal: denies: abdomen distended, abdominal pain, blood streaked bowels, constipated, diarrhea, dysphagia, difficulty swallowing, hematemesis, melena, nausea, poor appetite, poor fluid intake, rectal bleeding, rectal pain, vomiting, others Genitourinary: denies: burning, dysuria, flank pain, frequency, hematuria, incontinence, penile discharge, penile sore, pain, testicle pain, testicle swelling, urgency, others Neurological: denies: dizziness, fainting, headache, left sided numbness, left sided weakness, numbness, paresthesia, pre-existing deficit, right sided numbness, right sided weakness, seizure, speech problems, tingling, tremors, weakness, others Musculoskeletal: denies: back pain, gout, joint pain, joint swelling, muscle pain, muscle stiffness, neck pain, others Integumetry: denies: bruises, change in color, change in hair/nails, dryness, laceration, lesions, lumps, rash, wounds, others Allergic/Immunocompromised: denies: Difficulty Healing, Frequent Infections, Hives, Itching, others Hematologic/Lymphatic: denies: anemia, blood clots, easy bleeding, easy bruising, swollen glands, others Endocrine: denies: excessive hunger, excessive sweating, excessive thirst, excessive urination, flushing, intolerance to cold, intolerance to heat, unexplained weight gain, unexplained weight loss, others Psychiatric: denies: anxiety, bipolar disorder, depression, hopeless, panic disorder, schizophrenia, sleepless, suicidal, others All Other Systems: Reviewed and Negative Physical Exam General Appearance: No Apparent Distress, Normal, Other (Smells of alcohol) HEENT: Normal ENT Inspection, Pharynx Normal, TMs Normal Neck: Full Range of Motion, Non-Tender, Normal, Normal Inspection Respiratory: Chest Non-Tender, Lungs Clear, No Accessory Muscle Use, No Respiratory Distress, Normal Breath Sounds Cardiovascular: No Edema, No JVD, No Murmur, No Gallop, Normal Peripheral Pulses, Regular Rate/Rhythm Breast Exam: Deferred Gastrointestinal: No Organomegaly, Non Tender, No Pulsatile Mass, Normal Bowel Sounds, Soft Genitalia: Deferred Pelvic: Deferred Rectal: Deferred Extremities: No calf tenderness, Normal capillary refill, Normal inspection, Normal range of motion, Non-tender, No pedal edema Musculoskeletal : Apperance: Other (Mid sternal tenderness with palpation) Neurologic: Alert, director equipment II-XII nml as Tested, No Motor Deficits, Normal Affect, Normal Mood, No Sensory Deficits Cerebellar Function: Normal Reflexes: Normal Skin: Dry, Normal Color, Warm Lymphatic: No Adenopathy Was a procedure done? Was a procedure done?: No Differential Diagnosis (ALOC) Differential Diagnosis: ETOH Intoxication, Other (chest wall pain, angina, ptx, pneumonia, pancreatitis, gastritis) X-Ray, Labs, Meds, VS Vital Signs Date Time Temp Pulse Resp B/P (MAP) Pulse Ox O2 Delivery O2 Flow Rate FiO2 09/09/24 19:15 92 Time of 1ST Reevaluation: 20:26 Reevaluation 1ST: Unchanged Time of 2ND Reevaluation: 19:46 Reevaluation 2ND: eloped Patient Education/Counseling: Diagnosis, Treatment Family Education/Counseling: No Family Present Comments immediately after arrival, pt eloped. however, security talked him into staying. however, after i assessed him, he got up and eloped again. this time he did not return. i instructed charge to call PD, since he is drunk and at risk for injuries Additional Information Reviewed patient's previous visit(s): 07/20/24 for ETOH abuse The following tests were ordered, and results were reviewed by me: Chest XR, CBC, BMP, ETOH, Troponin, EKG Additional information was gathered from interviewing the following independent historian: EMS I reviewed and agreed with the following test results read by other provider: Chest XR I discussed treatments and results with medical personnel and: Patient Comprehensive systems review obtained and negative except for what is stated in the HPI. SEPSIS Sepsis Screen Physician Orders Complete Blood Count (09/09/24 19:23) Basic Metabolic Panel (09/09/24 19:23) Troponin-I Hs (09/09/24 19:23) Chest Portable (09/09/24 19:23) Urine Ethanol (09/09/24 19:23) Troponin-I Hs (09/09/24 20:23) Troponin-I Hs (09/09/24 22:23) Electrocardigram (09/09/24 19:29) Vital Signs Date Time Temp Pulse Resp B/P (MAP) Pulse Ox O2 Delivery O2 Flow Rate FiO2 09/09/24 19:15 92 Departure 1 Departure Time of Disposition: 19:48 Impression: Primary Impression: Chest wall pain Additional Impression: Alcohol abuse Disposition: 07 LEFT AWOL/ELOPED Condition: Other (unknown) Critical Care Note Critical Care Time?: No Stability Stability form required: No Heart Score Heart Score: Heart Score Response (Comments) Value History Slightly Suspicious 0 EKG Normal 0 Age <45 0 Risk Factors No known risk factors 0 Troponin N/A 0 Total 0 I personally scribed for JUAN ALBERTO ROCK MD ([email or web address]) on 09/09/24 at 19:28. Electronically submitted by Yadiel La ([email or web address]). I personally scribed for JUAN ALBERTO ROCK MD ([email or web address]) on 09/09/24 at 19:29. Electronically submitted by Yadiel La ([email or web address]). JUAN ALBERTO ROCK MD Sep 09, 2024 19:28
--- NOTE | 2024-09-10 06:12 | ECG ---
[facility] Test Date: 2024-09-09 Test Time: 19:15:03 Pat Name: NAWAF MCKEON Department: ED Room: Gender: M Comptometer Operator: ze : 1980 Requested By: JUAN ALBERTO ROCK Order Number: [id number] Reading MD: Measurements Intervals [place] Rate: 92 P: 44 WA: 165 QRS: 13 QRSD: 88 T: 27 QT: 373 QTc: 462 Interpretive Statements Sinus rhythm Please click the below link to view image of tracing.
== END 2024-09-09 19:30 | disposition left against medical advice (07) ==
LOC: ER 19:09 → EDBD 19:09 → ER 19:30
DX: R07.89 Other chest pain (principal); F10.10 Alcohol abuse, uncomplicated; I12.9 Hypertensive chronic kidney disease with stage 1 through stage 4 chronic kidney disease, or unspecified chronic kidney disease; N18.9 Chronic kidney disease, unspecified; F17.210 Nicotine dependence, cigarettes, uncomplicated; Z88.0 Allergy status to penicillin
CPT/HCPCS: 93005